=== PATIENT | female | born 1990 | race Caucasian/White ===

== ENCOUNTER 2021-11-16 00:02 | Emergency (ER) | payer OTHER ==
[~2021-11-16 00:02] MED LIST: ASCORBIC ACID500 MG PO; AUGMENTIN 875-1 EACH PO; BACITRACIN15 GM TOP; BACTRIM DS TAB1 EACH PO; CEPHALEXIN500 MG PO; CHLORTHALIDONE50 MG PO; CLARITIN10 MG PO; DIFLUCAN150 MG PO; EFFEXOR XR150 MG PO; EFFEXOR XR37.5 MG PO; FOLIXAPURE5000 UNIT PO; HCTZ12.5 MG PO; HCTZ25 MG PO; KEFLEX500 MG PO; LASIX20 MG PO; LEVAQUIN750 MG PO; LOSARTAN POTASS50 MG PO; LOSARTAN-HCTZ1 EAC2 PO; METFORMIN HCL750 MG PO; NUPERCAINAL56.7 GM TOP; PERCOCET 5-3251 EACH PO; POLYSPORIN OPT3.5 GM OS; ROCEPHIN2 GM IV; SUPER B COMPLE150 MG PO; VANCOMYCIN IV; VENLAFAXINE HCL75 M1 PO; VIBRAMYCIN100 MG PO; VICODIN 10/3251 EACH PO; ZYRTEC10 M3 PO; ZYRTEC10 MG PO; potassium
[2021-11-16 01:00] LABS: INFLUENZA A NAA NEGATIVE (NEGATIVE)
[2021-11-16 01:08] LABS: CORONAVIRUS 2019 SARS-COV-2 POSITIVE (NEGATIVE)
[2021-11-16] MEDS ORDERED: PAXLOVID 300-11 EACH PO (01:12)
== END 2021-11-16 02:56 | disposition home or self-care (01) ==
LOC: FER 00:02
PROVIDERS: Emergency Medicine
DX: U07.1 COVID-19 (principal); I10 Essential (primary) hypertension; F17.200 Nicotine dependence, unspecified, uncomplicated; E66.01 Morbid (severe) obesity due to excess calories; Z79.899 Other long term (current) drug therapy
CPT/HCPCS: J1885; U0002

== ENCOUNTER 2021-12-03 21:16 | Emergency (ER) | payer OTHER ==
[~2021-12-03 21:16] MED LIST changes: +PAXLOVID 300-11 EACH PO
[2021-12-03 23:58] LABS: BASOPHIL 0.6 % (0-2); EOSINOPHIL 1.9 % (0-5); HCT 44.1 % (37.0-47.0); HGB 14.3 g/dl (12.5-16.0); LYMPHOCYTE 38.3 % (15-48); MCH 28.8 pg (25.0-31.0); MCHC 32.4 g/dL (32.0-36.0); MCV 88.9 fL (78.0-100.0); MONOCYTE 3.8 % (0-12); MPV 9.6 fL (6.0-9.5); NEUTROPHIL 54.8 % (41-80); NRBC 0; PLT 276 K/uL (150-400); RBC 4.96 M/uL (4.20-5.40); RDW 15.4 % (11.5-14.0); WBC 10.6 K/uL (4.0-10.5)
[2021-12-04 00:14] LABS: ALBUMIN 3.4 g/dL (3.4-5.0); BILIRUBIN - TOTAL 0.5 mg/dL (0.2-1.0); BUN/CREAT RATIO (CALC) 20.7 RATIO; CREATININE 0.58 mg/dL (0.51-0.95); GLOBULIN (CALCULATION) 4.6 g/dL; POTASSIUM 3.7 mmol/L (3.5-5.1)
[2021-12-04] MEDS ORDERED: ANTIVERT25 MG PO (00:49)
== END 2021-12-04 01:05 | disposition home or self-care (01) ==
LOC: FER 21:16
PROVIDERS: Emergency Medicine
DX: R42 Dizziness and giddiness (principal)
CPT/HCPCS: 36415; 80053; 85025; 99284